=== PATIENT | female | born 1945 | race Caucasian/White ===

== ENCOUNTER 2017-11-13 11:05 | Day surgery (SDC) | payer BC, MEDICARE ==
[~2017-11-13 11:05] MED LIST: ALL220TA PO; ZOLO50TA PO
[2017-11-13] MEDS ORDERED: PLAV75TA29 PO (12:46)
[2017-11-13] MEDS ORDERED: ASPI-516 CHEW (12:46)
[2017-11-13] MEDS ORDERED: ZOLO50TA PO (12:46)
[2017-11-13] MEDS ORDERED: Hold AM Insulin & AM Hypoglycemic medications in diabetic patients PRN (13:00)
[2017-11-13] MEDS ORDERED: MUPIROCIN 2% OINT 1 APPLIC/GM SYR NASAL SCH (13:00)
[2017-11-13] MEDS ORDERED: ceFAZolin 2 GM PREMIX 50 ML IV SCH (13:00)
[2017-11-13] MEDS ORDERED: CHLORHEXIDINE GLUCONATE 2 % 1 PACK (2 CLOTHS) TOPICAL SCH (13:00)
[2017-11-13] MEDS ORDERED: NO Heparin, Lovenox, Coumadin at least 12 hours prior to procedure. PRN (13:00)
[2017-11-13] MEDS ORDERED: POVIDONE IODINE 5% (ANTISEPSIS KIT) 4 APPLICATIONS EACH NARE SCH (13:00)
[2017-11-13] MEDS ORDERED: VANCOMYCIN 1000 MG/NS 250 ML IV SCH ×2 (13:00)
[2017-11-13] MEDS ORDERED: MIDAZOLAM HCL 5 MG/ML VIAL (1 ML) ONE (14:40)
--- NOTE | 2017-11-14 14:56 | MP ---
cc: Mesfin Rubalcava MD DATE OF OPERATION: 11/13/2017 PROCEDURE PERFORMED: Loop recorder placement. INDICATION FOR PROCEDURE: See dictated H and P. CONSENT: Full informed consent was obtained for the procedure. Risk of , bleeding, infection, foreseen and unforeseen complications were reviewed. The patient appeared to fully understand the risks. DESCRIPTION OF PROCEDURE: The patient was prepped and draped in the usual manner. The patient was anesthetized using lidocaine and patient was offered sedation, but declined. Using the [employer] introducer, a Reveal device was placed on the skin in a subcutaneous fashion. Wound was closed with Steri-Strips. CONCLUSION: Successful placement of loop recorder. PLAN: We will plan to discharge the patient later today. Mesfin Rubalcava MD HAJ/KD , 02:37 PM , 02:55 PM
== END 2017-11-13 15:05 | disposition home or self-care (01) ==
LOC: HDOC 11:05 → HDIC 11:05 → HDOC 15:05
PROVIDERS: ATTEND Internal Medicine Cardiovascular Disease
DX: G45.9 Transient cerebral ischemic attack, unspecified (principal); R07.9 Chest pain, unspecified; E78.5 Hyperlipidemia, unspecified
CPT/HCPCS: 33282; C1764; J2250; J3010